=== PATIENT | female | born 2000 | race African-American/Black ===

== ENCOUNTER 2023-11-22 13:33 | Emergency (ER) | payer OTHER ==
[~2023-11-22] VITALS: Ht 162.6 cm; Wt 55.0 kg
[2023-11-22] MEDS: TRAMADOL 50MG TABLET PO NR (15:00)
[2023-11-22] MEDS: KETOROLAC 30MG/ML VIAL IM NR (15:00)
[2023-11-22] MEDS ORDERED: KETOROLAC 60MG/2ML VIAL IM NR (15:00)
[2023-11-22 15:25] LABS: CLARITY URINE TURBID (CLEAR); COLOR URINE RED (YELLOW); GLUCOSE URINE NEGATIVE (NEGATIVE); KETONES URINE 2+ (NEGATIVE); LEUKOCYTE ESTERASE URINE 3+ (NEGATIVE); NITRITE URINE POSITIVE (NEGATIVE); OCCULT BLOOD URINE 3+ (NEGATIVE); PH URINE 6.5 (4.5-8.0); PROTEIN URINE 3+ (NEGATIVE); SPECIFIC GRAVITY URINE 1.009 (1.005-1.030); UROBILINOGEN URINE 0.2 E.U./dL (0.2-1.0)
[2023-11-22 15:58] LABS: BACTERIA URINE 1+; RBC URINE TNTC /hpf (0-2); SQUAMOUS EPITHELIAL CELL URINE 1+ /lpf (RARE/1+)
[2023-11-22] MEDS ORDERED: IBUP-2029 MT (16:41)
[2023-11-22] MEDS ORDERED: LEVO-65 MT (16:41)
[2023-11-22 16:42] LABS: HEMATOCRIT. 35.9 % (36.0-48.0); HEMOGLOBIN. 11.3 g/dL (12.0-16.0); MEAN CORPUSCULAR HEMOGLOBIN 21.2 pg (28.0-32.0); MEAN CORPUSCULAR HGB CONC 31.6 g/dL (31.0-37.0); MEAN PLATELET VOLUME 7.9 fl (7.4-10.4); PLATELET 323 x1000/uL (130-400); RED BLOOD CELL COUNT 5.35 mill/uL (4.2-5.4); RED CELL DISTRIBUTION WIDTH 14.9 % (11.6-14.6); WHITE BLOOD COUNT 12.8 x1000/uL (4.5-11.0)
[2023-11-22 16:43] LABS: DIFFERENTIAL COMMENT 1
[2023-11-22 16:44] LABS: ADD RBC MORPHOLOGY YES
[2023-11-22 16:45] LABS: CHLORIDE 105 mEq/L (98-107); POTASSIUM 3.5 mEq/L (3.5-5.1); SODIUM 138 mEq/L (136-145)
[2023-11-22 16:46] LABS: CALCIUM 9.2 mg/dL (8.7-10.4); CARBON DIOXIDE 26 mEq/L (21-32)
[2023-11-22 16:48] VITALS: BP 118/70; PULSE 60; RESP 18
[2023-11-22 16:51] LABS: CREATININE 0.7 mg/dL (0.6-1.0); GLUCOSE 123 mg/dL (70-105); UREA NITROGEN BLOOD 6 mg/dL (9-23)
[2023-11-22 16:53] LABS: ALANINE AMINOTRANSFERASE 13 IU/L (10-49); ALBUMIN 3.9 g/dL (3.2-4.8); ASPARTATE AMINOTRANSFERASE 22 IU/L (<34); BILIRUBIN TOTAL 0.4 mg/dL (0.1-1.0); INR 0.9; PROTHROMBIN TIME 10.3 sec (9.6-11.0)
[2023-11-22 16:54] LABS: HCG SCREEN NEGATIVE
[2023-11-22 16:59] LABS: HYPOCHROMASIA 2+; MICROCYTOSIS 3+; PLATELET ESTIMATE NORMAL
== END 2023-11-22 17:14 | disposition home or self-care (01) ==
LOC: ER 15:09
DX: N30.81 Other cystitis with hematuria (principal)
CPT/HCPCS: 80053; 81003; 84703; 85025; 85610; 86850; 86900; 86901; 36415; 76830; 76856; 96372; 99285; J1885; Z7610